=== PATIENT | male | born 1960 | race Caucasian/White ===

== ENCOUNTER 2019-07-29 09:51 | Emergency (ER) | payer BC ==
[2019-07-29] MEDS ORDERED: Ibuprofen TAB* 600 MG PO ONE (12:25)
--- NOTE | 2019-07-29 12:31 | UC ---
Shoulder Pain HPI - HPI Summary HPI Summary: Patient is a 59yo male presenting with R shoulder pain and scalp laceration after slipping and falling on outside stairs last night. Patient states shoulder pain is "achey and crampy" and radiates from R anterior shoulder to upper R scapula. Denies neck pain. Denies arm, elbow, and hand pain. Denies numbness and tingling. Denies decreased ROM but notes it "takes a minute to move due to pain." Denies LOC. Denies n/v. Denies taking blood thinner. Denies changes in vision or headache. UTD on tetanus. - History of Current Complaint Chief Complaint: UCTrauma Stated Complaint: SHOULDER, BACK AND HEAD LACERATION FROM A FALL Hx Obtained From: Patient Onset/Duration: Sudden Onset Timing: Constant Severity Initially: Severe Severity Currently: Severe Pain Intensity: 9 - Allergies/Home Medications Allergies/Adverse Reactions: Allergies Allergy/AdvReac Type Severity Reaction Status Date / Time No Known Allergies Allergy Verified 07/29/19 10:18 PMH/Surg Hx/FS Hx/Imm Hx Previously Healthy: Yes - Surgical History Surgical History: Yes Surgery Procedure, Year, and Place: shoulder right ,finger amputaion,tenden repai r hand - Family History Known Family History: Positive: Unknown, Non-Contributory - Social History Alcohol Use: Occasionally Substance Use Type: None Smoking Status (MU): Never Smoked Tobacco Review of Systems All Other Systems Reviewed And Are Negative: Yes Constitutional: Positive: Negative Skin: Positive: Bruising - R shoulder, Other - scalp laceration Eyes: Positive: Negative Cardiovascular: Positive: Negative Gastrointestinal: Positive: Negative Motor: Positive: Negative Neurovascular: Positive: Negative Musculoskeletal: Positive: Arthralgia, Myalgia. Negative: Decreased ROM, Edema Neurological: Negative: Headache, Weakness, Paresthesia, Numbness Physical Exam Triage Information Reviewed: Yes Appearance: Well-Appearing, No Pain Distress, Well-Nourished Vital Signs: Initial Vital Signs Temp 98 F 07/29/19 10:15 Pulse 67 07/29/19 10:15 Resp 16 07/29/19 10:15 BP 143/84 07/29/19 10:15 Pulse Ox 100 07/29/19 10:15 Vital Signs Reviewed: Yes Eyes: Positive: Conjunctiva Clear, Other: - PERRLA. EOM intact ENT: Positive: Hearing grossly normal Neck exam: Normal Neck: Positive: Supple Respiratory Exam: Normal Respiratory: Positive: Lungs clear, Normal breath sounds, No respiratory distress Cardiovascular Exam: Normal Cardiovascular: Positive: RRR, Pulses Normal - strong radial pulses b/l, Brisk Capillary Refill Musculoskeletal: Positive: ROM Intact, No Edema, Strength Limited @ - shoulder flexion and extension due to pain Neurological Exam: Other - sensation grossly intact Neurological: Positive: Alert Psychological: Positive: Age Appropriate Behavior Skin: Positive: Other - small superficial abasion over humeral head. superficial nonbleeding laceration of R scalp Diagnostics - Radiology R shoulder Radiology Interpretation Completed By: Radiologist Summary of Radiographic Findings: IMPRESSION: OSTEOARTHRITIS. NO ACUTE OSSEOUS INJURY. IF SYMPTOMS PERSIST, RECOMMEND REPEAT IMAGING. Shoulder Course/Dx - Course Course Of Treatment: Discussed negative xrays with patient and to continue with symptomatic treatment including flexeril for spasm relief. Patient scalp laceration was approximated with 1 staple to promote proper healing without fully closing wound since it happened over 12 hours ago. Laceration irrigated with NS. 1% lido used. Patient tolerated procedure well. Educated on wound care and to have staple removed in 1 week. Educated on s/s of infection and instructed to go to ED if they occur. Patient voiced understanding and agreed with treatment plan. - Differential Dx/Diagnosis Provider Diagnosis: Scalp laceration, Shoulder pain, acute Discharge ED - Sign-Out/Discharge Documenting (check all that apply): Patient Departure All imaging exams completed and their final reports reviewed: Yes - Discharge Plan Condition: Stable Disposition: HOME Prescriptions: Cyclobenzaprine TAB* [Flexeril 10 MG TAB*] 10 mg PO BID PRN #8 tab PRN Reason: Spasms - Muscle Patient Education Materials: Laceration (ED), Shoulder Sprain (ED) Additional Instructions: As discussed, you received 1 staple in your scalp today. Keep your staple clean and dry for the first 24-48 hours. You may gently wash with soap and water daily after that. Return or follow up with your PCP in 7-10 days to have your staple removed. Return or go to the emergency department if you notice any redness, swelling, fluid drainage, fever, or nausea and vomiting. The xrays of the shoulder did not show any fractures. Rest and ice to help relieve pain. You may take flexeril as prescribed for muscle spasms. This may make you drowsy , so do not drive or operate heavy machinery while taking it. If pain does not resolve, follow up with your PCP. Return or go to the emergency room if pain worsens, the arm becomes cold and numb, or you are unable to move the arm. - Billing Disposition and Condition Condition: STABLE Disposition: Home
[2019-07-29] MEDS ORDERED: Lidocaine 1% MPF ** 5 ML VIAL INJ ONE (13:13)
[2019-07-29 14:02] VITALS: BP 145/77
== END 2019-07-29 14:02 | disposition home or self-care (01) ==
LOC: UCEAST 09:51
DX: M25.512 Pain in left shoulder (principal); S01.01XA Laceration without foreign body of scalp, initial encounter; S40.211A Abrasion of right shoulder, initial encounter; W01.0XXA Fall on same level from slipping, tripping and stumbling without subsequent striking against object, initial encounter; Y92.9 Unspecified place or not applicable
CPT/HCPCS: 12001; 99202; A9270-GY; G0463